=== PATIENT | male | born 1980 | race Caucasian/White ===

== ENCOUNTER 2019-03-09 09:03 | Day surgery (SDC) | payer OTHER ==
[~2019-03-09 09:03] MED LIST: Lactated Ringers 1,000 ML IV ONE; Sensorcaine 0.25% 10 ML ONE
[2019-03-09] MEDS ORDERED: Quelicin Fliptop 200 MG/10 ML IJ ONE (09:04)
[2019-03-09] MEDS ORDERED: TORAdol 30 mg Injection IJ ONE (09:04)
[2019-03-09] MEDS ORDERED: Decadron 4 MG INJ IV ONE (09:04)
[2019-03-09] MEDS ORDERED: SUBLIMAZE 100 MCG/2 ML IV ONE (09:04)
[2019-03-09] MEDS ORDERED: DIPRIVAN 200 MG/20 ML IV ONE (09:04)
[2019-03-09] MEDS ORDERED: Zofran 4 MG/2 ML VIAL IV ONE (09:04)
[2019-03-09] MEDS ORDERED: MEFOXIN 2 GM PREMIX** 50 ML IV ONE (09:12)
[2019-03-09] MEDS ORDERED: Lactated Ringers 1,000 ML IV ONE ×2 (09:18→11:18)
[2019-03-09] MEDS: Lactated Ringers 1,000 ML IV SCH ×2 (09:22→11:20)
[2019-03-09] MEDS ORDERED: KEFZOL 1 GM ONE (12:16)
[2019-03-09] MEDS ORDERED: SUBLIMAZE 100 MCG/2 ML ONE (12:43)
--- NOTE | 2019-03-09 13:29 | OP ---
SURGERY DATE/TIME: 03/09/2019 1200 PREOPERATIVE DIAGNOSIS: A 3 cm lesion left lower extremity. POSTOPERATIVE DIAGNOSIS: A 3 cm lesion left lower extremity. PROCEDURE: Excision and closure. SURGEON: Los Subramanian M.D. ANESTHESIA: General prone position. COMPLICATIONS: None. CONDITION: Stable. INDICATION: A patient with lesion left lower extremity fairly tough position. Needs prone for positioning. DESCRIPTION OF PROCEDURE: Taken to surgery. General anesthetic. Prone. Routine prep and drape. Time out performed. Elliptical excision. Taking as much skin as possible lesion appeared benign. It was subcu. A 3 cm mass totally excised. Hemostasis obtained with electrocautery. Closed with simple interrupted and vertical mattress sutures 2-0 and 3-0 chromic. Sterile dressing applied. The patient tolerated the procedure satisfactorily.
[2019-03-09 13:56] VITALS: O2SAT 98
[2019-03-09 14:06] VITALS: BP 130/85; PULSE 72
== END 2019-03-09 13:58 | disposition home or self-care (01) ==
LOC: SDC 09:03
PROVIDERS: ATTEND Surgery
DX: D23.72 Other benign neoplasm of skin of left lower limb, including hip (principal)
CPT/HCPCS: J0330; J0690; J1100; J1885; J2405; J2704; J3010